=== PATIENT | male | born 1950 | race Caucasian/White ===

== ENCOUNTER 2022-12-03 13:57 | Emergency (ER) | payer OTHER ==
[~2022-12-03] VITALS: Ht 193 cm; Wt 100.7 kg
[2022-12-03 14:16] VITALS: BP_SYST 142
[2022-12-03] MEDS ORDERED: CLIN-142 PO (15:24)
[2022-12-03] MEDS ORDERED: DIPH25TA62 PO (15:24)
[2022-12-03 16:23] VITALS: BP_SYST 116
--- NOTE | 2022-12-03 16:23 | NUR ---
Patient given written and verbal discharge instructions and verbalizes understanding. ER MD discussed with patient the results and treatment provided. Patient in stable condition. ID arm band removed. Rx of CLINDAMYCIN AND BENADRYL given. Patient educated on pain management and to follow up with PMD. Pain Scale 0/10 Opportunity for questions provided and answered. Medication side effect fact sheet provided.
== END 2022-12-03 16:23 | disposition home or self-care (01) ==
LOC: SED 13:57
DX: L03.211 Cellulitis of face (principal); I10 Essential (primary) hypertension; E78.5 Hyperlipidemia, unspecified; Z88.0 Allergy status to penicillin; Z79.899 Other long term (current) drug therapy
CPT/HCPCS: 99283